=== PATIENT | male | born 1970 | race Caucasian/White ===

== ENCOUNTER 2022-04-28 17:41 | Emergency (ER) | payer OTHER ==
[~2022-04-28] VITALS: Ht 170.2 cm; Wt 90.0 kg
[2022-04-28 17:47] VITALS: BP 119/82
[2022-04-28] MEDS ORDERED: PROZAC10 M2 PO (17:52)
[2022-04-28] MEDS ORDERED: LIPITOR20 M2 PO (17:53)
[2022-04-28] MEDS ORDERED: SINGULAIR PO (18:29)
== END 2022-04-28 19:14 | disposition home or self-care (01) ==
LOC: ED 17:41
DX: S61.011A Laceration without foreign body of right thumb without damage to nail, initial encounter (principal); Y93.H2 Activity, gardening and landscaping; W27.8XXA Contact with other nonpowered hand tool, initial encounter
CPT/HCPCS: 90714